=== PATIENT | female | born 1990 | race Caucasian/White ===

== ENCOUNTER 2021-08-18 06:49 | Inpatient (IN) | payer BC ==
[2021-08-18] MEDS ORDERED: Calcium Carbonate 500 MG Tab.Chew PO PRN (06:59)
[2021-08-18] MEDS ORDERED: Ondansetron 4 MG/2 ML SDV IVPUSH PRN (06:59)
[2021-08-18] MEDS ORDERED: Sodium Chloride 0.9% 10 ML Syringe FLUSH PRN (06:59)
[2021-08-18] MEDS ORDERED: Lidocaine 1% 50 ML MDV INJECT ONE (06:59)
[2021-08-18] MEDS ORDERED: Nalbuphine HCl 10 MG/ 1ML Amp IVPUSH PRN (06:59)
[2021-08-18] MEDS ORDERED: Oxytocin/Lactated Ringers 10 UNIT/1,000 ML BAG IV SCH ×2 (07:00)
[2021-08-18] MEDS: Lactated Ringers 1,000 ML IV SCH ×3 (09:00→10:56)
[2021-08-18] MEDS ORDERED: Sodium Chloride 0.9% 10 ML Syringe FLUSH SCH (09:00)
[2021-08-18] MEDS ORDERED: fentaNYL 100 MCG/2 ML SDV EPIDUR PRN (10:01)
[2021-08-18] MEDS ORDERED: ePHEDrine 50 MG/ML SDV IVPUSH PRN (10:01)
[2021-08-18] MEDS ORDERED: Bupivacaine/fentaNYL/NS 100 ML Bag EPIDUR PRN (10:01)
[2021-08-18] MEDS ORDERED: diphenhydrAMINE 50 MG/ML SDV IVPUSH PRN (10:01)
[2021-08-18] MEDS ORDERED: Bupivacaine 0.25% 10 ML SDV ONE (11:00)
[2021-08-18] MEDS ORDERED: Lidocaine 1.5% with EPINEPHrine 1:200,000 5 ML Amp ONE (11:00)
[2021-08-18] MEDS ORDERED: Acetaminophen 325 MG Tab PO PRN (15:57)
[2021-08-18] MEDS ORDERED: Benzocaine/Menthol 20%-0.5% Spray 78 GM Cannister TOP PRN (15:57)
[2021-08-18] MEDS ORDERED: Docusate Sodium 100 MG Cap PO PRN (15:57)
[2021-08-18] MEDS ORDERED: Witch Hazel Medicated Pads 40/Jar TOP PRN (15:57)
[2021-08-18] MEDS: Ibuprofen 600 MG Tab PO PRN ×2 (18:14→22:06)
[2021-08-19] MEDS: Ibuprofen 600 MG Tab PO PRN ×5 (03:54→21:40)
[2021-08-19] MEDS: Prenatal Multivitamin with Calcium/Folic Acid/Iron Tab PO SCH (08:37)
[2021-08-20] MEDS: Ibuprofen 600 MG Tab PO PRN ×2 (03:07→09:50)
[2021-08-20] MEDS: Prenatal Multivitamin with Calcium/Folic Acid/Iron Tab PO SCH (09:50)
== END 2021-08-20 14:43 | disposition home or self-care (01) | DRG 560 ==
LOC: JD.OB 06:49 → OBSVTOIN 15:32 → JD.OB 15:33
PROVIDERS: ADMIT Obstetrics & Gynecology; ATTEND Obstetrics & Gynecology
PROC: 10E0XZZ Delivery of Products of Conception, External Approach (ICD-10-PCS; principal; 2021-08-18)
PROC: 10907ZC Drainage of Amniotic Fluid, Therapeutic from Products of Conception, Via Natural or Artificial Opening (ICD-10-PCS; 2021-08-18)
PROC: 3E0R3BZ Introduction of Anesthetic Agent into Spinal Canal, Percutaneous Approach (ICD-10-PCS; 2021-08-18)
PROC: 0HQ9XZZ Repair Perineum Skin, External Approach (ICD-10-PCS; 2021-08-18)
DX: O48.0 Post-term pregnancy (principal); Z3A.40 40 weeks gestation of pregnancy; Z37.0 Single live birth; O70.0 First degree perineal laceration during delivery
CPT/HCPCS: 36415; 51701; 59025; 59409; 85025; 86592; 86850; 86900; 86901; A9270-GY; J2405; J2590; J3010; J3490; J7120

== ENCOUNTER → 2021-11-21 | Day surgery (SDC) | payer BC ==
[~2021-11-21] MED LIST: Lactated Ringers 1,000 ML IV ONE; Lidocaine 1% PF 2 ML SDV INJECT ONE; Midazolam 1 MG/ML 2 ML SDV IV ONE; Propofol 200 MG/20 ML SDV IV ONE
== END ==
LOC: JD.SDS 06:00
DX: K29.50 Unspecified chronic gastritis without bleeding (principal); K31.89 Other diseases of stomach and duodenum; K31.7 Polyp of stomach and duodenum; K21.9 Gastro-esophageal reflux disease without esophagitis; Z79.899 Other long term (current) drug therapy; Z98.890 Other specified postprocedural states
CPT/HCPCS: 43239; 81025; J2250; J2704; J7120; 00731